=== PATIENT | female | born 1970 | race Caucasian/White ===

== ENCOUNTER 2020-11-03 23:13 | Emergency (ER) | payer OTHER ==
[~2020-11-03] VITALS: Ht 165.1 cm; Wt 85.0 kg
[2020-11-03] MEDS ORDERED: MAALOX/HYOSCYAMINE/LIDOCAINE 45 ML BTL ONE (23:40)
[2020-11-03] MEDS ORDERED: ONDANSETRON ODT 4 MG ONE (23:40)
--- NOTE | 2020-11-03 23:46 | NUR ---
PT TO ULTRASOUND
[2020-11-04] MEDS ORDERED: MAALOX/HYOSCYAMINE/LIDOCAINE 45 ML BTL PO ONE
[2020-11-04] MEDS ORDERED: ONDANSETRON ODT 4 MG PO ONE
[2020-11-04 00:29] LABS: BASOPHILS % (AUTO) 1 % (0-1); EOSINOPHILS % (AUTO) 1 % (1-7); LYMPHOCYTES % (AUTO) 38 % (22-44); MEAN CORPUSCULAR HEMOGLOBIN 31.7 pg (27.0-34.8); MEAN CORPUSCULAR HGB CONC 35.1 g/dL (32.4-35.8); MEAN PLATELET VOLUME 7.7 fL (7.4-10.4); MONOCYTES % (AUTO) 10 % (2-9); NEUTROPHILS % (AUTO) 50 % (42-75); PLATELET COUNT 236 x10^3/uL (130-400); RED BLOOD COUNT 4.98 x10^6/uL (3.82-5.3); RED CELL DISTRIBUTION WIDTH 13.4 % (9.6-15.2)
[2020-11-04 00:32] LABS: MD NO
[2020-11-04 00:41] LABS: ALANINE AMINOTRANSFERASE 44 U/L (12-78); ALBUMIN 3.4 g/dL (3.4-5.0); ANION GAP 7 mmol/L (5-15); CALCIUM 8.6 mg/dL (8.5-10.1); CHLORIDE 108 mmol/L (98-107); CREATININE 0.77 mg/dL (0.55-1.02)
[2020-11-04 00:44] LABS: ALKALINE PHOSPHATASE 46 U/L (45-117); BILIRUBIN,TOTAL 0.2 mg/dL (0.2-1.0); TOTAL PROTEIN 7.1 g/dL (6.4-8.2)
[2020-11-04] MEDS ORDERED: OMNIPAQUE 350 MG/ML, 100ML BOTTLE ONE (01:30)
--- NOTE | 2020-11-04 01:35 | NUR ---
BREAK RN. PT RESTING, WATCHING TV, WAITING FOR MD TO SEE FOR RECHECK. STATES PAIN IS SAME WITH NO IMPROVEMENT.
[2020-11-04] MEDS ORDERED: PROMETHAZINE 25 MG/ML, 1ML ONE (01:57)
[2020-11-04] MEDS ORDERED: PROMETHAZINE 25 MG/ML, 1ML IM ONE (02:00)
--- NOTE | 2020-11-04 02:18 | NUR ---
PIV WAS PLACED AND CT COMPLETED. NO OTHER NEEDS AT THIS TIME
[2020-11-04 02:24] VITALS: BP 115/84
== END 2020-11-04 03:50 | disposition home or self-care (01) ==
LOC: ED 11-04 00:46
DX: K29.00 Acute gastritis without bleeding (principal); K44.9 Diaphragmatic hernia without obstruction or gangrene
CPT/HCPCS: 36415; 74177; 76700; 80053; 83690; 85025; 96372; 99285; J2550; Q0162; Q9967